=== PATIENT | male | born 1955 | race Caucasian/White ===

== ENCOUNTER 2019-09-12 11:15 | Day surgery (SDC) | payer MEDICARE, SELFPAY ==
[2019-09-09 12:15] VITALS: BMI 19.0
--- NOTE | 2019-09-12 11:48 | P.ANES_ITS ---
Pre-Anesthetic Assessment Pre-Anesthetic Assessment: Height/Weight: Height 1.73 m Weight 56.699 kg Preop Diagnosis: Screening colonoscopy Proposed Procedure: Operation Date: 09/12/19 13:00 Proposed Procedures p Colonoscopy 64701 Z12.11(Not Applicable) - Maldonado Mcdowell MD Familial anesthetic complications: PONV Was Beta Cary taken within 24 hours: N/A Last intake: NPO > 8 hrs, black coffe 0600 Social: Social History: Tobacco (1 ppd) Exam: Pre-Anes Outpt Exam: alert, oriented x 3, clear to auscultation bilaterally and regular rate & rhythm Airway: Cervical ROM: WNL MP: 3 Dentition: False Pulmonary: Pulmonary: None reported CV/HEM: CV/HEM: Arrythmia and HTN : : None reported Hepatic: Hepatic: None reported GI: GI: GERD Metabolic: Metabolic: None reported Musc/skel: Musc/skel: None reported Neuropsych: Neuropsych: None reported Anesthetic Plan: ASA status: II Anesthesia: MAC Risk of > 500 ml blood loss (7ml/kg in children): No PFSH Anesthesia PFSH: Social History Smoking and tobacco status: never smoked Second hand smoke exposure: No Alcohol intake: never Adopted: No Caregiver/support person: Yes Lives independently: Yes Household members: spouse and family Housing: House Marital status: Highest education level completed: High School Graduate service: No Current occupational exposures/hazards: No Pets and animals: No History of recent travel: No Leisure activites: exercise Sexually active: No Current gender identity: Male Ally/Sabianist: Confucianism Special ally needs: No Agree to transfusion: No Financial difficulty paying for basics: Decline to Answer Data Anesthesia Cardiac Studies: No Data to Display
[2019-09-12 12:04] VITALS: BP 135/80; PULSE 93; RESP 16; TEMP 37.1; O2SAT 99
--- NOTE | 2019-09-12 12:13 | ANE.PACU ---
 Inpatient post-anesthesia follow up: Airway intact: Yes Vital signs: Temperature Pulse Rate Respiratory Rate Blood Pressure Pulse Oximetry Oxygen Delivery Me thod Oxygen Flow Rate Fraction of Inspir ed Oxygen Hydration adequate: Yes Nausea and vomiting: No Pain level: 1 Mental status: Baseline
[2019-09-12] MEDS: sodium chloride 0.9% 1,000 ML 30 ML (12:16)
--- NOTE | 2019-09-12 12:19 | PM.HPUD ---
H&P update H&P Update: DATE OF SURGERY/PROCEDURE: 09/12/19 DATE H&P PERFORMED: 09/07/19 H&P UPDATE INFORMATION: H&P completed within last 30 days and No changes to prior documentation PREOP DIAGNOSIS: Screening colonoscopy PLANNED PROCEDURE: Operation Date: 09/12/19 13:00 Proposed Procedures p Colonoscopy 96453 Z12.11(Not Applicable) - Maldonado Mcdowell MD Full H&P Perinent History: Medical/Surgical History: Medical History (Updated 09/08/19 @ 08:52 by Maldonado Mcdowell MD) Screen for colon cancer (Acute) Family History: Family History (Updated 09/06/19 @ 09:59 by Natalia Velez RN) Denies family history of Anesthesia complication Bleeding disorder Social History: Social History Smoking and tobacco status: never smoked Second hand smoke exposure: No Alcohol intake: never Adopted: No Caregiver/support person: Yes Lives independently: Yes Household members: spouse and family Housing: House Marital status: Highest education level completed: High School Graduate service: No Current occupational exposures/hazards: No Pets and animals: No History of recent travel: No Leisure activites: exercise Sexually active: No Current gender identity: Male Ally/Buddhism: Orthodox Special ally needs: No Agree to transfusion: No Financial difficulty paying for basics: Decline to Answer
[2019-09-12 12:46] VITALS: BP 128/78; PULSE 85; RESP 16; TEMP 36.9; O2SAT 100
[2019-09-12 13:08] VITALS: BP 130/87; PULSE 64; RESP 18; O2SAT 100
== END 2019-09-12 13:13 | disposition home or self-care (01) ==
PROVIDERS: Family Provider Physician Assistant; PCP Internal Medicine; Visit Provider Surgery
PROC: 0DJD8ZZ Inspection of Lower Intestinal Tract, Via Natural or Artificial Opening Endoscopic (ICD-10-PCS; CPT 45378; principal; 2019-09-12 13:00)
DX: Z12.11 Encounter for screening for malignant neoplasm of colon (principal); K62.1 Rectal polyp; I10 Essential (primary) hypertension
CPT/HCPCS: 12345; 45385; 88305; 96365; J2704; J7030

== ENCOUNTER 2022-08-11 09:21 | Outpatient (CLI) | payer MEDICARE, SELFPAY ==
--- NOTE | 2022-08-11 10:08 | MR_ITS ---
WS: [id number] MRI BRAIN WITH AND WITHOUT CONTRAST HISTORY: HEADACHE COMPARISON: None available. TECHNIQUE: Multiplanar imaging performed through the brain with MultiHance 13 ml's IV. No acute infarcts are seen. Lanza-white matter differentiation is well preserved. Mild cerebral atroph y. Mild small vessel ischemic changes in the subcortical white matter. No susceptibility artifacts or prior lacunar infarcts. Ventricles and extra-axial spaces are normal. Clivus and pituitary gland are normal. Visualized posterior fossa and brainstem are also normal. Postcontrast images are negative for masses or vascular malformations. Dural venous sinuses are normal. Paranasal sinuses: Well aerated with no significant disease. Mastoid air cells: Normal. Calvarium and scalp: Normal. MR/MR head wo/w con [id number] IMPRESSION: 1. No acute infarct or hemorrhage. 2. No mass or vascular malformation identified.
[2022-08-11] MEDS: gadobenate dimeglumine 20 mL vial IV (11:08)
== END 2022-08-11 09:22 | disposition home or self-care (01) ==
PROVIDERS: PCP Internal Medicine; Visit Provider Nurse Practitioner
DX: R51.9 Headache, unspecified (principal)
CPT/HCPCS: 70553; A9577